=== PATIENT | male | born 1990 | race African-American/Black ===

== ENCOUNTER 2018-07-05 16:58 | Emergency (ER) | payer MEDICAID ==
[~2018-07-05] VITALS: Ht 175.3 cm; Wt 98.0 kg
[2018-07-05] MEDS ORDERED: ACETAMINOPHEN 325MG TABLET PO STA (18:12)
[2018-07-05] MEDS ORDERED: SODIUM CHLORIDE 0.9% 1,000 ML IV ONE (18:12)
[2018-07-05] MEDS ORDERED: PANTOPRAZOLE SODIUM 40 MG/VIAL IV STA (18:12)
[2018-07-05] MEDS ORDERED: ONDANSETRON HCL 4MG/2ML VIAL IV STA (18:12)
[2018-07-05] MEDS ORDERED: KETOROLAC 30MG/ML VIAL IV STA (18:12)
[2018-07-05 18:22] LABS: BASOPHILS % 0.2 % (0.0-2.0); EOSINOPHILS % 0.1 % (0.0-5.0); HEMATOCRIT. 44.9 % (42.0-52.0); HEMOGLOBIN. 15.3 g/dL (14.0-18.0); LYMPHOCYTES % 11.7 % (20.0-50.0); MEAN CORPUSCULAR HEMOGLOBIN 30.9 pg (28.0-32.0); MEAN CORPUSCULAR VOLUME 90.4 fL (80.0-94.0); MEAN PLATELET VOLUME 8.3 fl (7.4-10.4); MONOCYTES % 8.1 % (2.0-8.0); NEUTROPHILS % 79.9 % (40.0-76.0); PLATELET 249 x1000/uL (130-400); RED BLOOD CELL COUNT 4.97 mill/uL (4.7-6.1); RED CELL DISTRIBUTION WIDTH 13.1 % (11.6-14.6)
[2018-07-05 18:25] LABS: CHLORIDE 105 mEq/L (98-107)
[2018-07-05] MEDS ORDERED: POTASSIUM CHLORIDE 20MEQ TABLET SR PO ONE (21:30)
[2018-07-05 22:55] VITALS: BP 116/67
== END 2018-07-05 23:23 | disposition home or self-care (01) ==
LOC: ER 16:58
DX: R10.13 Epigastric pain (principal); R11.2 Nausea with vomiting, unspecified; E87.6 Hypokalemia; J02.9 Acute pharyngitis, unspecified; F17.200 Nicotine dependence, unspecified, uncomplicated; Z88.2 Allergy status to sulfonamides; Z88.1 Allergy status to other antibiotic agents
CPT/HCPCS: 36415; 74176; 80053; 85025; 87070; 87430; 96361; 96374; 96375; 99284; C9113; J1885; J2405; J7030

== ENCOUNTER 2019-04-12 13:57 | Emergency (ER) | payer MEDICAID ==
[~2019-04-12] VITALS: Ht 185.4 cm; Wt 98.0 kg
[2019-04-12] MEDS ORDERED: KETOROLAC 30MG/ML VIAL IV STA (17:14)
[2019-04-12] MEDS ORDERED: ONDANSETRON 4MG ODT PO STA (17:14)
[2019-04-12] MEDS ORDERED: MORPHINE SULFATE 4 MG/ML CPJ (NOT FOR IM USE) IV STA (17:14)
[2019-04-12] MEDS ORDERED: SODIUM CHLORIDE 0.9% 1,000 ML IV ONE (17:14)
[2019-04-12 17:54] LABS: BASOPHILS % 0.3 % (0.0-2.0); CHLORIDE 104 mEq/L (98-107); HEMATOCRIT. 46.5 % (42.0-52.0); LYMPHOCYTES % 7.3 % (20.0-50.0); MEAN CORPUSCULAR HEMOGLOBIN 31.3 pg (28.0-32.0); MEAN CORPUSCULAR VOLUME 91.2 fL (80.0-94.0); MEAN PLATELET VOLUME 7.8 fl (7.4-10.4); MONOCYTES % 9.1 % (2.0-8.0); NEUTROPHILS % 83.3 % (40.0-76.0); PLATELET 312 x1000/uL (130-400); RED CELL DISTRIBUTION WIDTH 13.3 % (11.6-14.6)
[2019-04-12 19:02] VITALS: BP 136/82
== END 2019-04-12 19:03 | disposition home or self-care (01) ==
LOC: ER 13:57
DX: K52.9 Noninfective gastroenteritis and colitis, unspecified (principal); Z88.3 Allergy status to other anti-infective agents; Z88.2 Allergy status to sulfonamides
CPT/HCPCS: 36415; 80053; 82962; 83690; 85025; 96361; 96374; 96375; 99283; J1885; J2270; J7030; Q0162; Z7610

== ENCOUNTER 2019-04-20 07:24 | Inpatient (IN) | payer MEDICAID ==
[~2019-04-20] VITALS: Ht 185.4 cm; Wt 97.5 kg
[2019-04-20] MEDS ORDERED: ONDANSETRON HCL 4MG/2ML INJ IV STA (07:54)
[2019-04-20] MEDS ORDERED: SODIUM CHLORIDE 0.9% 1,000 ML IV ONE (07:54)
[2019-04-20] MEDS ORDERED: KETOROLAC 30MG/ML VIAL IV STA (07:54)
[2019-04-20] MEDS ORDERED: ACETAMINOPHEN 325MG TABLET PO ONE (08:15)
[2019-04-20 08:18] LABS: CHLORIDE 110 mEq/L (98-107)
[2019-04-20 08:20] LABS: HEMATOCRIT. 39.3 % (42.0-52.0); HEMOGLOBIN. 13.3 g/dL (14.0-18.0); MEAN CORPUSCULAR HEMOGLOBIN 30.7 pg (28.0-32.0); MEAN CORPUSCULAR VOLUME 90.5 fL (80.0-94.0); MEAN PLATELET VOLUME 7.4 fl (7.4-10.4); PLATELET 388 x1000/uL (130-400); PROTHROMBIN TIME 10.8 sec (9.6-11.0); RED BLOOD CELL COUNT 4.34 mill/uL (4.7-6.1)
[2019-04-20 08:37] LABS: CLARITY URINE CLEAR (CLEAR); COLOR URINE YELLOW (YELLOW); KETONES URINE NEGATIVE (NEGATIVE); LEUKOCYTE ESTERASE URINE NEGATIVE (NEGATIVE); NITRITE URINE NEGATIVE (NEGATIVE); OCCULT BLOOD URINE NEGATIVE (NEGATIVE); PH URINE >=9.0 (4.5-8.0); PROTEIN URINE NEGATIVE (NEGATIVE); SPECIFIC GRAVITY URINE 1.017 (1.005-1.030); UROBILINOGEN URINE 0.2 E.U./dL (0.2-1.0)
[2019-04-20] MEDS ORDERED: SODIUM CHLORIDE 0.9% 1000ML BAG (SEPSIS BOLUS) IV ONE (08:45)
[2019-04-20] MEDS ORDERED: FAMOTIDINE 20MG/2ML VIAL IV SCH (09:00)
[2019-04-20 09:27] LABS: PLATELET ESTIMATE NORMAL
[2019-04-20] MEDS ORDERED: IBUPROFEN 600MG TABLET PO ONE (09:30)
[2019-04-20] MEDS ORDERED: IOHEXOL-300 100 ML BOTTLE ONE (09:30)
[2019-04-20] MEDS ORDERED: CEFTRIAXONE 1 G PREMIX 50 ML IV ONE (10:15)
[2019-04-20] MEDS ORDERED: METRONIDAZOLE 500 MG PREMIX 100 ML IV ONE (10:15)
[2019-04-20 15:00] VITALS: BP 102/66
[2019-04-20 15:34] VITALS: BP 102/66
[2019-04-20 16:00] VITALS: BP 102/64
[2019-04-20 20:00] VITALS: BP 123/71
[2019-04-20] MEDS ORDERED: KETOROLAC 15MG/ML VIAL IV PRN (21:00)
[2019-04-20] MEDS: ONDANSETRON HCL 4MG/2ML INJ IV PRN (21:27)
[2019-04-20] MEDS: METRONIDAZOLE 500 MG PREMIX 100 ML IV SCH (21:28)
[2019-04-20] MEDS: SODIUM CHLORIDE 0.9% 1,000 ML IV SCH (21:28)
[2019-04-21] VITALS: BP 149/91
[2019-04-21 04:00] VITALS: BP 124/78
[2019-04-21] MEDS: METRONIDAZOLE 500 MG PREMIX 100 ML IV SCH ×3 (05:15→22:58)
[2019-04-21 06:35] LABS: HEMATOCRIT. 36.9 % (42.0-52.0); HEMOGLOBIN. 12.6 g/dL (14.0-18.0); MEAN CORPUSCULAR HEMOGLOBIN 31.2 pg (28.0-32.0); PLATELET 324 x1000/uL (130-400); RED BLOOD CELL COUNT 4.05 mill/uL (4.7-6.1); RED CELL DISTRIBUTION WIDTH 13.4 % (11.6-14.6)
[2019-04-21 07:53] LABS: CHLORIDE 110 mEq/L (98-107)
[2019-04-21 08:00] VITALS: BP 121/83
[2019-04-21] MEDS: CEFTRIAXONE 1 G PREMIX 50 ML IV SCH (08:13)
[2019-04-21] MEDS: ONDANSETRON HCL 4MG/2ML INJ IV PRN ×2 (08:30→18:42)
[2019-04-21] MEDS: SODIUM CHLORIDE 0.9% 1,000 ML IV SCH ×2 (08:39→19:51)
[2019-04-21 09:36] LABS: *AMPHETAMINES SCREEN URINE NEGATIVE (NEGATIVE); *BARBITURATES SCREEN URINE NEGATIVE (NEGATIVE)
[2019-04-21 09:38] LABS: *BENZODIAZEPINES SCREEN URINE NEGATIVE (NEGATIVE); *COCAINE SCREEN URINE NEGATIVE (NEGATIVE); CANNABINOID URINE SCREEN PRESUMTIVE POSITIVE (NEGATIVE); METHADONE URINE SCREEN NEGATIVE (NEGATIVE); OPIATES URINE SCREEN NEGATIVE (NEGATIVE); PHENCYCLIDINE URINE SCREEN NEGATIVE (NEGATIVE)
[2019-04-21 12:00] VITALS: BP 120/75
[2019-04-21] MEDS: ACETAMINOPHEN 325MG TABLET PO PRN ×2 (12:30)
[2019-04-21 16:00] VITALS: BP 114/82
[2019-04-21 16:11] LABS: PLATELET ESTIMATE NORMAL
[2019-04-21] MEDS ORDERED: VANCOMYCIN 2,000 MG in DEXT 5% WATER 500 ML IV NR (18:00)
[2019-04-21 20:00] VITALS: BP 123/76
[2019-04-21] MEDS: LINEZOLID 600 MG PREMIX 300 ML IV SCH (23:58)
[2019-04-22 00:05] VITALS: BP 129/82
[2019-04-22] MEDS ORDERED: VANCOMYCIN 1500MG in DEXTROSE 5% WATER 250ML IV SCH (02:00)
[2019-04-22] MEDS: SODIUM CHLORIDE 0.9% 1,000 ML IV SCH ×3 (03:00→22:39)
[2019-04-22 04:00] VITALS: BP 127/81
[2019-04-22 05:16] LABS: HIV SCREEN 4G Non Reactive (Non Reactive)
[2019-04-22] MEDS: METRONIDAZOLE 500 MG PREMIX 100 ML IV SCH ×3 (05:43→22:12)
[2019-04-22 07:04] LABS: BASOPHILS % 0.3 % (0.0-2.0); EOSINOPHILS % 0.7 % (0.0-5.0); HEMATOCRIT. 37.7 % (42.0-52.0); LYMPHOCYTES % 17.1 % (20.0-50.0); MEAN CORPUSCULAR HEMOGLOBIN 31.1 pg (28.0-32.0); MEAN CORPUSCULAR VOLUME 90.4 fL (80.0-94.0); MEAN PLATELET VOLUME 8.1 fl (7.4-10.4); MONOCYTES % 6.2 % (2.0-8.0); NEUTROPHILS % 75.7 % (40.0-76.0); PLATELET 295 x1000/uL (130-400); RED BLOOD CELL COUNT 4.17 mill/uL (4.7-6.1); RED CELL DISTRIBUTION WIDTH 13.6 % (11.6-14.6)
[2019-04-22 07:10] LABS: CHLORIDE 110 mEq/L (98-107)
[2019-04-22 08:00] VITALS: BP 131/73
[2019-04-22] MEDS: CEFTRIAXONE 1 G PREMIX 50 ML IV SCH (09:12)
[2019-04-22 12:00] VITALS: BP 116/69
[2019-04-22] MEDS: LINEZOLID 600 MG PREMIX 300 ML IV SCH (12:34)
[2019-04-22 16:09] VITALS: BP 120/77
[2019-04-22] MEDS: ACETAMINOPHEN 325MG TABLET PO PRN (17:12)
[2019-04-22 20:00] VITALS: BP 121/68
[2019-04-23 00:05] VITALS: BP 129/68
[2019-04-23 04:00] VITALS: BP_SYST 112; BP_SYST 123; BP_DIAS 65; BP_DIAS 91
[2019-04-23] MEDS: METRONIDAZOLE 500 MG PREMIX 100 ML IV SCH ×2 (05:44→13:29)
[2019-04-23 07:02] LABS: BASOPHILS % 0.5 % (0.0-2.0); EOSINOPHILS % 3.5 % (0.0-5.0); HEMATOCRIT. 39.1 % (42.0-52.0); HEMOGLOBIN. 13.1 g/dL (14.0-18.0); LYMPHOCYTES % 28.2 % (20.0-50.0); MEAN CORPUSCULAR HEMOGLOBIN 30.4 pg (28.0-32.0); MEAN CORPUSCULAR VOLUME 90.8 fL (80.0-94.0); MONOCYTES % 8.8 % (2.0-8.0); PLATELET 307 x1000/uL (130-400); RED CELL DISTRIBUTION WIDTH 13.7 % (11.6-14.6)
[2019-04-23 07:17] LABS: CHLORIDE 110 mEq/L (98-107)
[2019-04-23 08:00] VITALS: BP 119/80
[2019-04-23] MEDS: CEFTRIAXONE 1 G PREMIX 50 ML IV SCH (08:18)
[2019-04-23] MEDS: SODIUM CHLORIDE 0.9% 1,000 ML IV SCH (10:46)
[2019-04-23 12:45] VITALS: BP 120/79
[2019-04-23 13:10] LABS: ANTI-MYELOPEROXIDASE AB < 9.0 U/mL (0.0-9.0); ANTI-PROTEINASE 3 ABS < 3.5 U/mL (0.0-3.5)
[2019-04-23] MEDS ORDERED: POLYETHYLENE GLYCOL 3350 (17GM) 1 DOSE PACK PO SCH (13:45)
[2019-04-23] MEDS ORDERED: DOCUSATE SODIUM 250MG CAPSULE PO SCH (14:00)
[2019-04-23 14:54] LABS: ATYPICAL pANCA <1:20 titer (Neg:<1:20)
[2019-04-23 16:00] VITALS: BP 141/93
[2019-04-23 17:00] VITALS: BP 106/65
[2019-04-23 17:10] LABS: ATYPICAL P-ANCA <1:20 titer (Neg:<1:20); CYTOPLASMIC C-ANCA <1:20 titer (Neg:<1:20); PERINUCLEAR P-ANCA <1:20 titer (Neg:<1:20)
[2019-04-24] MEDS ORDERED: METRONIDAZOLE 500MG TABLET PO SCH (06:00)
[2019-05-04 09:51] LABS: SACCHAROMYCES CEREVISIAE IGG <20.0 Units (0.0-24.9); SACCHAROMYCES CEREVISIAE IGM <20.0 Units (0.0-24.9)
== END 2019-04-23 17:30 | disposition home or self-care (01) | DRG 720 ==
LOC: ER 07:24 → 7WST 10:39 → EDBEDREQTM 10:45 → EDBEDREQ 10:45 → ENRESERV 14:05 → 7WST 15:25
PROVIDERS: ADMIT Internal Medicine; ATTEND Internal Medicine
DX: A41.9 Sepsis, unspecified organism (principal); E87.2 Acidosis; R74.0 Nonspecific elevation of levels of transaminase and lactic acid dehydrogenase [LDH]; E87.6 Hypokalemia; D64.9 Anemia, unspecified; Z79.899 Other long term (current) drug therapy; Z88.2 Allergy status to sulfonamides; A09 Infectious gastroenteritis and colitis, unspecified
CPT/HCPCS: 36415; 74177; 80048; 80076; 80305; 83520; 83605; 84145; 86256; 86671; 87077; 87186; 87389; 93005; 96374; 96375; 99291; J0696; J1885; J2020; J2405; J3370; J3490; J7030; J7060; Q9967